=== PATIENT | male | born 1955 | race Caucasian/White ===

== ENCOUNTER → 2018-09-18 | Day surgery (SDC) | payer OTHER ==
[~2018-09-18] MED LIST: ALPR0.5T6 PO; ASPI81TA50 PO; COLE1TAB2 PO; DICL50TA4 PO; EPLE25TA4 PO; FURO40TA4 PO; IV RINGERS,LACTATED 1000ML 1,000 ML IV SCH; LIDOCAINE 1% PF 2 ML VIAL. ID PRN; LIDOCAINE 1% PF 2 ML VIAL. ONE; LISI-338 PO; MIDAZOLAM HCL/PF 2 MG/2 ML VIAL. IV PRN; MULT1TAB52 PO; OMEP20TA8 PO; PROPOFOL 40 ML IV ONE; SOTA80TA48 PO; TAMS0.4C97 PO; fentaNYL PF VIAL 100 MCG/2 ML VIAL IV PRN
[2018-09-18 14:00] VITALS: BP 117/79
--- NOTE | 2018-09-22 10:06 | PATHOLOGY ---
[facility] Accession Number: [id number] . 01 Material submitted: . MID TRANSVERSE POLYP BIOPSY . 01 Clinical history: . Cirrhosis, CRCS, history of HCV . 02 Diagnosis: Colon biopsies, mid transverse colon polyp: - Tubular adenoma. 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 02 Comment: There is no high-grade dysplasia or evidence of malignancy. 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 02 Electronically signed: . Cody Isbell MD, Pathologist NPI- [id number] . 01 Gross description: . The specimen is received in formalin, labeled "David Hebert, mid transverse polyp BX", are 2 oliver mucosal tissues measuring 0.4 and a 0.3 cm in greatest dimension, entirely submitted in A1. ([facility]; 09/18/2018) SHS/SHS . 02 Pathologist provided ICD-10: D12.3 . 02 CPT . 334019 Specimen Comment: A courtesy copy of this report has been sent to Specimen Comment: [phone], . Specimen Comment: Report sent to / DR QUIROGA Performed at: 01 [facility] [address], [place], [place] [id number] MD Ricky Goel MD Phone: [phone] Performed at: 02 [facility] [address] [place], [place] [id number] MD Cody Isbell MD Phone: [phone]
== END | disposition home or self-care (01) ==
LOC: SURG 11:43
PROVIDERS: ATTEND Internal Medicine Gastroenterology
DX: D12.3 Benign neoplasm of transverse colon (principal); K57.30 Diverticulosis of large intestine without perforation or abscess without bleeding; K64.0 First degree hemorrhoids; I85.00 Esophageal varices without bleeding; K29.20 Alcoholic gastritis without bleeding; E78.00 Pure hypercholesterolemia, unspecified; F41.9 Anxiety disorder, unspecified; I10 Essential (primary) hypertension; K21.9 Gastro-esophageal reflux disease without esophagitis; Z86.19 Personal history of other infectious and parasitic diseases; Z82.49 Family history of ischemic heart disease and other diseases of the circulatory system; Z83.79 Family history of other diseases of the digestive system; Z72.89 Other problems related to lifestyle; Z79.82 Long term (current) use of aspirin; Z79.899 Other long term (current) drug therapy; Z98.890 Other specified postprocedural states; Z96.652 Presence of left artificial knee joint
CPT/HCPCS: 43235; 45380; J2704; 88305